=== PATIENT | female | born 1935 | race Caucasian/White ===

== ENCOUNTER 2016-06-24 14:11 | Emergency (ER) | payer OTHER ==
[~2016-06-24] VITALS: Ht 160 cm; Wt 65.8 kg
[~2016-06-24 14:11] MED LIST: AMITRIPTYLINE H10 MG PO; ATENOLOL50 MG PO; CLINDAMYCIN HY300 MG PO; COLCRYS0.6 MG PO; DIOVAN HCT 12.51 TAB PO; METFORMIN500 MG PO; MOBIC7.5 MG PO; NAPROSYN375 MG PO; NEURONTIN100 MG PO; POLYTRIM EYE DR10 ML OPH; TYLENOL #31 TAB PO
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
[2016-06-24 15:00] LABS: ABSOLUTE BASOPHIL COUNT 0.1 /CUMM (0.0-0.2); ABSOLUTE EOSINOPHIL COUNT 0.2 /CUMM (0.0-0.7); ABSOLUTE GRANULOCYTE CT 3.5 /CUMM (1.4-6.5); ABSOLUTE LYMPH COUNT 2.6 /CUMM (1.2-3.4); ABSOLUTE MONOCYTE COUNT 0.8 /CUMM (0.10-0.60); BASOPHIL % 0.7 % (0.0-2.0); GRANULOCYTE % 48.6 % (42.2-75.2); HEMATOCRIT 38.3 % (37-47); MEAN CORPUSCULAR HGB CONC 33.5 G/DL (33.0-37.0); MEAN CORPUSCULAR VOLUME 86.8 FL (81.0-99.0); MEAN PLATELET VOLUME 8.5 FL (7.4-10.4); PLATELET COUNT 203 /CUMM (130-400); RBC DISTRIBUTION WIDTH 14.9 % (11.5-14.5); RED BLOOD CELL CT 4.41 /CUMM (4.20-5.40); WHITE BLOOD CELL COUNT 7.3 /CUMM (4.8-10.8)
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
[2016-06-24 20:03] VITALS: BP 146/80
== END 2016-06-24 20:00 ==
LOC: ERH 14:11
PROVIDERS: Emergency Medicine
DX: S20.219A Contusion of unspecified front wall of thorax, initial encounter (principal); R10.13 Epigastric pain; R07.9 Chest pain, unspecified; V48.5XXA Car driver injured in noncollision transport accident in traffic accident, initial encounter
CPT/HCPCS: 74176; 93005; 93010

== ENCOUNTER 2017-09-14 17:16 | Emergency (ER) | payer OTHER ==
[~2017-09-14] VITALS: Ht 160 cm; Wt 64.9 kg
[2017-09-14 18:40] VITALS: BP 186/80
[2017-09-14] MEDS ORDERED: TYLENOL WITH C1 EACH PO ×2 (19:15→19:16)
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
[2017-09-14] MEDS ORDERED: GABAPENTIN300 M2 PO (19:22)
== END 2017-09-14 19:22 ==
LOC: ERH 17:16
DX: E11.40 Type 2 diabetes mellitus with diabetic neuropathy, unspecified (principal)